=== PATIENT | female | born 1935 | race Caucasian/White ===

== ENCOUNTER 2018-12-28 22:11 | Emergency (ER) | payer BC, MEDICARE ==
--- NOTE | 2018-12-28 23:14 | EDM.PDOC ---
ED HPI GENERAL MEDICAL PROBLEM - General Chief Complaint: Abdominal Pain Stated Complaint: ABDOMINAL PAIN, IRREGULAR HEARTBEAT Time Seen by Provider: 12/28/18 22:40 Source of Information: Reports: Patient, Family History Limitations: Reports: No Limitations - History of Present Illness INITIAL COMMENTS - FREE TEXT/NARRATIVE: 83-year-old female who had abdominal pain early this evening, now seems to be resolving. She's been having a recurring pattern of sharp abdominal pain, especially across the lower abdomen a few hours after her evening meals followed by some diarrhea. Usually the pain subsides within a half hour but tonight it was intense pain for almost 2 hours so she came in to be seen. She also had a period of time tonight where her blood pressure dropped and she felt lightheaded and became pale. Symptoms now seem to have resolved. She was also concerned she may be in atrial fibrillation. She had no chest pain or shortness of breath. Her only surgery was a cystic lesion removed from her uterus years ago. Duration: Hour(s): (Pain lasted 2-3 hours) Location: Reports: Abdomen (Lower abdomen) Quality: Reports: Sharp, Stabbing - Related Data Allergies Allergy/AdvReac Type Severity Reaction Status Date / Time No Known Allergies Allergy Verified 12/28/18 22:40 Home Meds: Home Meds Atenolol 25 mg PO DAILY 12/28/18 [History] Levothyroxine 75 mcg PO ACBREAKFAST 12/28/18 [History] Lisinopril 2.5 mg PO DAILY 12/28/18 [History] Simvastatin 20 mg PO BEDTIME 12/28/18 [History] Past Medical History HEENT History: Reports: Cataract Cardiovascular History: Reports: High Cholesterol, Hypertension REGISTER OF WILLS History: Reports: , Other (See Below) Other REGISTER OF WILLS History: cyst removed from uterus Musculoskeletal History: Reports: Fracture, Osteoporosis Neurological History: Reports: Migraines Endocrine/Metabolic History: Reports: Other (See Below) Other Endocrine/Metabolic History: graves Oncologic (Cancer) History: Reports: Breast Dermatologic History: Reports: Melanoma - Infectious Disease History Infectious Disease History: Reports: Chicken Pox, Measles, Mumps - Past Surgical History HEENT Surgical History: Reports: Cataract Surgery GI Surgical History: Reports: Appendectomy Endocrine Surgical History: Reports: Thyroidectomy Oncologic Surgical History: Reports: Mastectomy Other Oncologic Surgeries/Procedures: right Social & Family History - Tobacco Use Smoking Status *Q: Never Smoker - Caffeine Use Caffeine Use: Reports: Coffee - Recreational Drug Use Recreational Drug Use: No ED ROS GENERAL - Review of Systems Review Of Systems: See Below Constitutional: Denies: Fever, Chills Respiratory: Reports: No Symptoms Cardiovascular: Reports: No Symptoms GI/Abdominal: Reports: Abdominal Pain, Diarrhea : Reports: No Symptoms Skin: Reports: Diaphoresis Neurological: Reports: No Symptoms. Denies: Headache ED EXAM, GI/ABD - Physical Exam Exam: See Below Exam Limited By: No Limitations General Appearance: Alert, No Apparent Distress Eyes: Bilateral: Normal Appearance (No jaundice) Throat/Mouth: Normal Inspection Respiratory/Chest: No Respiratory Distress, Lungs Clear Cardiovascular: Regular Rate, Rhythm. No: Extra Beats GI/Abdominal Exam: Normal Bowel Sounds, Soft, Non-Tender Neurological: Alert, Oriented Psychiatric: Normal Affect, Normal Mood Skin Exam: Warm, Dry Course - Vital Signs Last Recorded V/S: Last Vital Signs Temp 97.2 F 12/28/18 22:37 Pulse 67 12/28/18 22:37 Resp 16 12/28/18 22:37 BP 155/68 H 12/28/18 22:37 Pulse Ox 100 12/28/18 22:37 - Re-Assessments/Exams Free Text/Narrative Re-Assessment/Exam: 12/29/18 02:38 monitoring analyst shows normal sinus rhythm, vitals are all normal. I explained to patient she probably had a vasovagal-type episode from abdominal pain. Her pattern is concerning for a partial small bowel obstruction. I encouraged her to get a primary care or surgical consult at her next available appointment, stay hydrated and eat smaller more frequent meals. She should return at any time if pain recurs and is persistent. Departure - Departure Time of Disposition: 23:29 Disposition: Home, Self-Care 01 Clinical Impression: Abdominal pain Qualifiers: Abdominal location: lower abdomen, unspecified Qualified Code(s): R10.30 - Lower abdominal pain, unspecified - Discharge Information Instructions: Abdominal Pain, Adult Referrals: PCP,None [Primary Care Provider] - Forms: ED Department Discharge Care Plan Goals: Drink lots of fluids in small frequent meals may be helpful. Return anytime if symptoms return and are persistent, or consider getting a recheck with your regular doctor or surgery if symptoms are recurring or worsening.
== END 2018-12-28 23:29 | disposition home or self-care (01) ==
LOC: JP.ED 22:11
DX: R10.30 Lower abdominal pain, unspecified (principal)
CPT/HCPCS: 99283

== ENCOUNTER 2019-02-01 23:48 | Emergency (ER) | payer MEDICARE ==
[2019-02-02] MEDS ORDERED: Cetirizine 10 MG Tab PO ONE (00:08)
[2019-02-02] MEDS ORDERED: predniSONE 20 MG Tab PO ONE (00:08)
[2019-02-02] MEDS ORDERED: Famotidine 20 MG Tab PO ONE (00:08)
--- NOTE | 2019-02-02 00:19 | EDM.PDOC ---
ED HPI GENERAL MEDICAL PROBLEM - General Chief Complaint: Allergic Reaction Stated Complaint: ALLERGIC REACTION Time Seen by Provider: 02/01/19 23:55 Source of Information: Reports: Patient, Old Records, RN History Limitations: Reports: No Limitations - History of Present Illness INITIAL COMMENTS - FREE TEXT/NARRATIVE: 83 yo female noticed swelling of her tongue, ears, and some scattered hives at around 10 pm tonight. She took 50 mg of diphenhydramine before arrival and is feeling a little better already. She drove herself to the ER, her does not drive. No breathing issues with this spell. Ate peanuts about 5 pm today. Had a roast beef sandwich with mustard, wine, and pasta salad for dinner. Is on lisinopril for HTN. Onset: Sudden Onset Date: 02/01/19 Onset Time: 22:00 Duration: Hour(s): Location: Reports: Other (tongue, ears(canals), and skin) Quality: Reports: Other (itchy) Severity: Moderate Improves with: Reports: Medication Worsens with: Reports: Other (unknown) Context: Reports: Other (See HPI) Associated Symptoms: Reports: No Other Symptoms Treatments ART PREPARATOR: Reports: Other (see below) (diphenhydramine) - Related Data Allergies Allergy/AdvReac Type Severity Reaction Status Date / Time No Known Allergies Allergy Verified 02/01/19 23:58 Home Meds: Home Meds Atenolol 25 mg PO DAILY 12/28/18 [History] Levothyroxine 75 mcg PO ACBREAKFAST 12/28/18 [History] Lisinopril 2.5 mg PO DAILY 12/28/18 [History] Simvastatin 20 mg PO BEDTIME 12/28/18 [History] Aspirin [Yessenia Chewable Aspirin] 1 tab PO DAILY 02/01/19 [History] Calcium Carbonate/Vitamin D3 [Calcium 600 + Vit D 400 Softgl] 1 tab PO DAILY 12/15 [History] Past Medical History HEENT History: Reports: Cataract Cardiovascular History: Reports: High Cholesterol, Hypertension CELLAR SUPERVISOR History: Reports: , Other (See Below) Other CELLAR SUPERVISOR History: cyst removed from uterus Musculoskeletal History: Reports: Fracture, Osteoporosis Neurological History: Reports: Migraines Endocrine/Metabolic History: Reports: Other (See Below) Other Endocrine/Metabolic History: graves Oncologic (Cancer) History: Reports: Breast Dermatologic History: Reports: Melanoma - Infectious Disease History Infectious Disease History: Reports: Chicken Pox, Measles, Mumps - Past Surgical History HEENT Surgical History: Reports: Cataract Surgery GI Surgical History: Reports: Appendectomy Endocrine Surgical History: Reports: Thyroidectomy Oncologic Surgical History: Reports: Mastectomy Other Oncologic Surgeries/Procedures: right Social & Family History - Tobacco Use Smoking Status *Q: Never Smoker - Caffeine Use Caffeine Use: Reports: Coffee - Alcohol Use Days Per Week of Alcohol Use: 7 Number of Drinks Per Day: 1 Total Drinks Per Week: 7 - Recreational Drug Use Recreational Drug Use: No ED ROS ALLERGIC REACTION - Review of Systems Review Of Systems: See Below Constitutional: Reports: No Symptoms HEENT: Reports: Other (tongue swelling, ears itch). Denies: Throat Swelling Respiratory: Reports: No Symptoms Cardiovascular: Reports: No Symptoms Skin: Reports: Pruritis, Rash, Erythema, Urticaria Neurological: Reports: No Symptoms ED EXAM GENERAL NO PERIP PULSE - Physical Exam Exam: See Below Exam Limited By: No Limitations General Appearance: Alert, WD/WN, No Apparent Distress Eye Exam: Bilateral Eye: Normal Inspection Ears: Normal External Exam, Normal Canal, Hearing Grossly Normal, Normal TMs Nose: Normal Inspection, No Blood Throat/Mouth: Normal Inspection, Normal Lips, Normal Oropharynx, No Airway Compromise, Other (tongue swollen grossly) Head: Atraumatic, Normocephalic Respiratory/Chest: No Respiratory Distress, Lungs Clear, Normal Breath Sounds, No Accessory Muscle Use Cardiovascular: Regular Rate, Rhythm, No Edema Extremities: Normal Inspection Neurological: Alert, Oriented, CN II-XII Intact, Normal Cognition, No Motor/ Sensory Deficits Psychiatric: Normal Affect, Normal Mood Skin Exam: Warm, Dry, Intact, Erythema, Rash (hives, kavita the area under her pants/shorts and axilla bilat.). No: Normal Color, No Rash Course - Vital Signs Text/Narrative:: Improving after tx. Last Recorded V/S: Last Vital Signs Temp 36 C 02/01/19 23:57 Pulse 70 02/01/19 23:57 Resp 16 02/01/19 23:57 BP 162/71 H 02/01/19 23:57 Pulse Ox 99 02/01/19 23:57 - Orders/Labs/Meds Meds: Medications Discontinued Medications Generic Name Dose Route Start Last Admin Trade Name Freq PRN Reason Stop Dose Admin Cetirizine HCl 10 mg 02/02/19 00:08 02/02/19 00:24 Zyrtec PO 02/02/19 00:09 10 mg ONETIME ONE Administration Famotidine 20 mg 02/02/19 00:08 02/02/19 00:24 Pepcid PO 02/02/19 00:09 20 mg ONETIME ONE Administration Prednisone 40 mg 02/02/19 00:08 02/02/19 00:24 Prednisone PO 02/02/19 00:09 40 mg ONETIME ONE Administration Departure - Departure Time of Disposition: 00:44 Disposition: Home, Self-Care 01 Condition: Fair Clinical Impression: Allergic reaction Qualifiers: Encounter type: initial encounter Qualified Code(s): T78.40XA - Allergy, unspecified, initial encounter - Discharge Information *PRESCRIPTION DRUG MONITORING PROGRAM REVIEWED*: No *COPY OF PRESCRIPTION DRUG MONITORING REPORT IN PATIENT [place]: No Instructions: Allergies, Adult, [id number] Referrals: PCP,None [Primary Care Provider] - Forms: ED Department Discharge Additional Instructions: Continue diphenhydramine 50 mg every 4-6 hrs until all your allergy symptoms are resolved. Don't take your Lisinopril until you clear it with your doctor tomorrow. Return as needed. Be careful with peanuts in the future also.
== END 2019-02-02 01:09 | disposition home or self-care (01) ==
LOC: JP.ED 23:48
DX: L50.0 Allergic urticaria (principal); I10 Essential (primary) hypertension; E78.00 Pure hypercholesterolemia, unspecified; Z79.899 Other long term (current) drug therapy; Z79.82 Long term (current) use of aspirin; Z90.49 Acquired absence of other specified parts of digestive tract; Z98.890 Other specified postprocedural states
CPT/HCPCS: 99284; A9270